=== PATIENT | male | born 1990 | race Caucasian/White ===

== ENCOUNTER 2022-06-28 17:36 | Emergency (ER) | payer SELFPAY ==
[~2022-06-28] VITALS: Ht 177.8 cm; Wt 64.3 kg
== END 2022-06-28 19:05 | disposition home or self-care (01) ==
LOC: ED 17:36
DX: S63.602A Unspecified sprain of left thumb, initial encounter (principal); W22.8XXA Striking against or struck by other objects, initial encounter
CPT/HCPCS: 29125; 73140; 99283-25; A9270